=== PATIENT | male | born 2000 | race Caucasian/White ===

== ENCOUNTER 2024-08-11 04:06 | Day surgery (SDC) | payer OTHER ==
[2024-08-10 08:45] VITALS: BMI 22.5
[2024-08-11] MEDS ORDERED: PROPOFOL 40 ML ONE (11:37)
[2024-08-11] MEDS ORDERED: LIDOCAINE HCL/PF 2% SDV 5ML VIAL ONE (11:37)
[2024-08-11] MEDS ORDERED: DEXAMETHASONE SOD PHOSPHATE 4 MG/1 ML VIAL ONE (11:38)
[2024-08-11] MEDS ORDERED: ONDANSETRON 4 MG/2 ML VIAL ONE (11:38)
[2024-08-11] MEDS ORDERED: KETOROLAC TROMETHAMINE 30 MG/1 ML VIAL ONE (11:38)
[2024-08-11] MEDS ORDERED: ceFAZolin SODIUM 1 GM VIAL ONE (11:39)
[2024-08-11] MEDS ORDERED: BUPIVACAINE HCL/PF 0.5% (5MG/ML) 10 ML VIAL ONE (11:40)
[2024-08-11] MEDS ORDERED: LIDOCAINE HCL 1%, 10 MG/ML (20ML VIAL) ONE (11:40)
[2024-08-11] MEDS ORDERED: MIDAZOLAM HCL 2 MG/2 ML SINGLE DOSE VIAL ONE (11:41)
[2024-08-11] MEDS ORDERED: SEVOFLURANE 250 ML BTL ONE (12:34)
[2024-08-11] MEDS ORDERED: LIDOCAINE HCL 2% JELLY 6 ML TP ONE (12:34)
[2024-08-11] MEDS ORDERED: ACETAMINOPHEN INJECTION 100 ML ONE (12:39)
[2024-08-11] MEDS ORDERED: LIDOCAINE HCL 2% (20ML MULTI-DOSE VIAL) ONE (12:49)
[2024-08-11] MEDS: ceFAZolin SODIUM 1 GM VIAL IVPB ONE (12:50)
[2024-08-11] MEDS: LIDOCAINE HCL 2% (50ML VIAL) INF ONE ×2 (12:54)
[2024-08-11] MEDS ORDERED: ONDANSETRON 4 MG/2 ML VIAL IVPUSH PRN (13:35)
[2024-08-11] MEDS ORDERED: oxyCODONE HCL 5 MG TABLET PO PRN (13:35)
[2024-08-11] MEDS ORDERED: LACTATED RINGERS SOLUTION 1,000 ML IV SCH (13:45)
[2024-08-11] MEDS ORDERED: ELECTROLYTE-148 SOLN 1,000 ML IV SCH (13:45)
[2024-08-11 14:50] VITALS: RESP 20
[2024-08-11 16:18] VITALS: BP 123/60; PULSE 52; TEMP 98.2
== END 2024-08-11 17:05 | disposition home or self-care (01) ==
LOC: JASU-SURG 04:06
PROVIDERS: ATTEND Urology
PROC: 0VTTXZZ Resection of Prepuce, External Approach (ICD-10-PCS; principal; 2024-08-11 14:30)
DX: N47.1 Phimosis (principal)
CPT/HCPCS: 88304-TC; 94760; J0131